=== PATIENT | male | born 1995 | race American Indian/Alaskan Native ===

== ENCOUNTER 2017-09-01 09:04 | Emergency (ER) | payer SELFPAY ==
[2017-09-01 09:30] VITALS: BP 112/78
--- NOTE | 2017-09-01 10:48 | Emergency Department Report ---
Eye Injury/Foreign Body - HPI Duration: 3 months Eye Location: Bilateral Severity: None Eye Symptoms: Eye Pain: No, Blurred Vision: No, Eye Redness: No, Grinding/ Hammering Metal: No, Used Eye Protection: No, Contact Lens Use: No, Recalls Injury: No, Photophobia: No Other History: This is a 22-year-old male that presents with acute on chronic bilateral blepharitis. This started 2 days ago became worse and had some purulent drainage. Patient denies any visual changes, eye pain, headache, stiff neck, nausea, vomiting, chest pain, short of breath, no numbness or tingling. Patient denies any allergies or significant past medical history. ED Review of Systems ROS: Stated complaint: EYE INFECTION Other details as noted in HPI Constitutional: denies: chills, fever Eyes: denies: eye pain, eye discharge, vision change ENT: denies: ear pain, throat pain Respiratory: denies: cough, shortness of breath, wheezing Cardiovascular: denies: chest pain, palpitations Endocrine: no symptoms reported Gastrointestinal: denies: abdominal pain, nausea, diarrhea Genitourinary: denies: urgency, dysuria Musculoskeletal: denies: back pain, joint swelling, arthralgia Skin: denies: rash, lesions Neurological: denies: headache, weakness, paresthesias Psychiatric: denies: anxiety, depression Hematological/Lymphatic: denies: easy bleeding, easy bruising ED Past Medical Hx - Past Medical History Previous Medical History?: No - Surgical History Past Surgical History?: No - Social History Smoking Status: Current Every Day Smoker Substance Use Type: None - Medications Home Medications: Home Medications Medication Instructions Recorded Confirmed Last Taken Type Sulfamethoxazole/Trimethoprim 1 each PO BID #14 tablet 09/01/17 Unknown Rx [Bactrim DS TAB] Eye Injury Exam - Exam General: Vital signs noted. No distress. Alert and acting appropriately. GENERAL: The patient is a well-developed, well-nourished in no apparent distress. Patient is alert and acting appropriately for age. Alert and oriented 3, no apparent distress, normal gait, atraumatic. HEENT: Head is normocephalic and atraumatic. PERRL, Extraocular muscles are intact. Pupils are equal, round, and reactive to light and accommodation. Nares appeared normal. Mouth is well hydrated and without lesions. Mucous membranes are moist. Posterior pharynx clear of any exudate or lesions. Mouth is well hydrated and without lesions. Tonsils not erythematous or swollen. Uvula midline. Tongue elevated. Mucous members are moist. Posterior pharynx clear, no exudate or lesions. Patent airways. NECK: Supple. No carotid bruits. No lymphadenopathy or thyromegaly.nontender. No meningitic signs are noted. LUNGS: Clear to auscultation. Non labor breathing. No intercostal retractions. Symmetrical with respiration, no wheezing, no rales, or crackles. HEART: Regular rate and rhythm without murmur, rubs or gallops. No reproducible. S1, S2 present, regular rate and rhythm without murmur, no rubs, no gallops. ABDOMEN: Soft, nontender, and nondistended. Positive bowel sounds. No hepatosplenomegaly was noted. No guarding or rebound tenderness, negative epigastric bruit. Negative psoas sign, negative huffman sign, negative McBurneys sign EXTREMITIES: Without any cyanosis, clubbing, rash, lesions or edema. Peripheral pulses intact. Capillary refill less than 2 seconds. Full range of motion bilaterally. NEUROLOGIC: Cranial nerves II through XII are grossly intact. Alert and oriented x 3. Normal gait. Symmetrical strength and sensation. Reflexes 2+ throughout. Cerebellar testing normal. GCS score of 15. PSYCHIATRIC: Normal affect with no suicidal or homicidal ideations. Skin: Bilateral eyelid with nodular swelling about 0.5 cm with no induration or flutance noted. No discharge or pus noted. No surrounding periorbital cellulites noted. ED Course Vital Signs 09/01/17 09:28 Temperature 99.1 F Pulse Rate 74 Respiratory 18 Rate Blood Pressure 112/78 O2 Sat by Pulse 98 Oximetry - Reevaluation(s) Reevaluation #1: 09/01/17 10:46 Patient is speaking in full sentences with no signs of distress noted. ED Medical Decision Making - Medical Decision Making This is a 22-year-old male that presents with bilateral blepharitis. Patient is stable and was examined by me. Upon examination there is no signs of any abscess formation. The patient stated that area has been having purulent Drainage I will treat patient with Bactrim. Patient was also instructed to apply warm compresses as much as possible Patient was instructed to follow-up with fire boss if symptoms worsen such as periorbital cellulitis. At time of discharge, the patient does not seem toxic or ill in appearance. No acute signs of distress noted. Patient agrees to discharge treatment plan of care. No further questions noted by the patient. Critical care attestation.: If time is entered above; I have spent that time in minutes in the direct care of this critically ill patient, excluding procedure time. ED Disposition Clinical Impression: Blepharitis of both eyes Qualifiers: Blepharitis type: unspecified type Eyelid: upper Qualified Code(s): H01.001 - Unspecified blepharitis right upper eyelid; H01.004 - Unspecified blepharitis left upper eyelid Disposition: DC- TO HOME OR SELFCARE Is pt being admited?: No Does the pt Need Aspirin: No Condition: Stable Instructions: Blepharitis (ED), Sulfamethoxazole/Trimethoprim (By mouth) Additional Instructions: Follow-up with a Frame Table Operator Helper in 3-5 days or if symptoms worsen and continue return to emergency room as soon as possible. Prescriptions: Sulfamethoxazole/Trimethoprim [Bactrim DS TAB] 1 each PO BID #14 tablet Referrals: PRIMARY MD GENNA [Primary Care Provider] - 3-5 Days YASIR CASTELLANO MD [Staff Physician] - 3-5 Days [facility] [Outside] - 3-5 Days [facility] [Outside] - 3-5 Days Forms: Work/School Release Form(ED)
== END 2017-09-01 11:13 | disposition home or self-care (01) ==
LOC: ED 09:04
DX: H01.001 Unspecified blepharitis right upper eyelid (principal); H01.004 Unspecified blepharitis left upper eyelid; F17.200 Nicotine dependence, unspecified, uncomplicated
CPT/HCPCS: 99282